=== PATIENT | female | born 1985 | race African-American/Black ===

== ENCOUNTER 2019-04-29 08:52 | Emergency (ER) | payer OTHER ==
[~2019-04-29] VITALS: Ht 160 cm; Wt 59.0 kg
[2019-04-29 08:55] VITALS: BP 149/96; Ht 160 cm; Wt 59.0 kg
[2019-04-29 10:12] LABS: AMPHETAMINE QUAL UR NONE DETECTED (See below)
== END 2019-04-29 11:26 | disposition home or self-care (01) ==
LOC: ED 08:52
PROVIDERS: Emergency Medicine
DX: B34.9 Viral infection, unspecified (principal); F12.10 Cannabis abuse, uncomplicated
CPT/HCPCS: 82962

== ENCOUNTER 2020-07-22 08:31 | Emergency (ER) | payer OTHER ==
[~2020-07-22] VITALS: Ht 160 cm; Wt 84.4 kg
[2020-07-22 08:39] VITALS: Ht 160 cm; Wt 84.4 kg
[2020-07-22 09:44] VITALS: BP 113/68
== END 2020-07-22 09:44 | disposition home or self-care (01) ==
LOC: ED 08:31
DX: S60.445A External constriction of left ring finger, initial encounter (principal); W49.04XA Ring or other jewelry causing external constriction, initial encounter; Y93.89 Activity, other specified; Y92.89 Other specified places as the place of occurrence of the external cause; Y99.8 Other external cause status